=== PATIENT | male | born 1985 ===

== ENCOUNTER 2022-10-14 05:26 | Day surgery (SDC) | payer OTHER ==
[~2022-10-14 05:26] MED LIST: ACID REDUCER20 M1 PO
== END 2022-10-14 10:20 | disposition home or self-care (01) ==
LOC: CIR.AMB 05:26
PROVIDERS: ATTEND Surgery
DX: L72.0 Epidermal cyst (principal); D49.2 Neoplasm of unspecified behavior of bone, soft tissue, and skin; Z91.013 Allergy to seafood; Z86.16 Personal history of COVID-19; Z20.822 Contact with and (suspected) exposure to COVID-19; F17.210 Nicotine dependence, cigarettes, uncomplicated; F12.90 Cannabis use, unspecified, uncomplicated

== ENCOUNTER → 2024-11-08 | Emergency (ER) | payer OTHER ==
[~2024-11-08] VITALS: Ht 185.4 cm; Wt 81.6 kg
[~2024-11-08] MED LIST changes: +CETIRIZINE HCL10 MG PO; +CLINDAMYCIN PHOSPHATE 150 MG/ML (300mg) ONE; +CLINDAMYCIN PHOSPHATE 150 MG/ML (600mg) IM STA; +KETOROLAC TROMETHAMINE 60 MG VIAL IM ONE; +KETOROLAC TROMETHAMINE 60 MG VIAL IM STA; +OxyCODONE HCL/APAP UD (PERCOCET) PO STA; +TETANUS & DIPHTHERIA TOX,ADULT 0.5 ML VIAL IM STA; +TETANUS DIPHTHERIA TOX. ADSOR 5 ML VIAL IM ONE
== END | disposition left against medical advice (07) ==
LOC: ER 02:26
DX: S61.421A Laceration with foreign body of right hand, initial encounter (principal); X08.8XXA Exposure to other specified smoke, fire and flames, initial encounter; W40.0XXA Explosion of blasting material, initial encounter; Y93.89 Activity, other specified; Y92.89 Other specified places as the place of occurrence of the external cause; Z91.013 Allergy to seafood
CPT/HCPCS: 90471; 90714; 96372; J1885; J3490